=== PATIENT | female | born 1955 | race Caucasian/White ===

== ENCOUNTER 2017-08-04 07:07 | Day surgery (SDC) | payer OTHER ==
[~2017-08-04 07:07] MED LIST: ADULT LOW DOSE81 MG PO; BUSPAR 10MG TAB10 MG PO; ENBREL50 MG/1 ML SQ; WELLBUTRIN XL300 MG PO
--- NOTE | 2017-08-04 08:48 | Operative Note ---
Surgeon/Diagnoses Surgeon/[employer] Specialist(s) Date of procedure: 08/04/17 Surgeon: MD Jane Oleary Diagnoses Pre-op diagnosis: Dysphagia Heartburn Gastroesophageal reflux History of colon polyps Post-op diagnosis Same as preoperative diagnoses, with the addition of the following: Mild to moderate gastritis Very small sliding hiatal hernia Gastric cardia polyp Colon polyps Minimal hemorrhoidal cushions Procedure Procedure Procedure: Esophagogastroduodenoscopy with biopsy Colonoscopy with polypectomy Indications: SANTOSH SRIVASTAVA is a 61 year-old Female with a history of dysphagia, gastroesophageal reflux, heartburn, and a history of complex RIGHT sided colon polyp (serrated adenoma). Barium swallow revealed no significant abnormality. Findings: Gastroesophageal junction at 36 cm Tiny sliding hiatal hernia noted on maximum insufflation Gastric cardia polyp Mild to moderate gastritis Bowel preparation fairly poor for colonoscopy Fairly significant tortuosity and spasticity Sessile complex cecal polyp and adjacent polyp Procedure Description: After informed consent was obtained, the patient was taken to the endoscopy suite. IV sedation ensued after she was transferred to the LEFT lateral decubitus position. The gastroscope was advanced. No strictures or mass lesions were seen. These findings are consistent with recent barium swallow results. The gastroesophageal junction was at 36 cm. The stomach was entered. Mild to moderate gastritis was encountered. Retroflexion revealed a tiny sliding hernia that was noted only on maximum insufflation. The gastric cardia polyp was excised with cold biopsy forceps. Antral biopsies were obtained. The pylorus was intubated. The duodenal mucosa appeared relatively normal. The gastroscope was carefully removed. Digital rectal exam revealed very small hemorrhoidal cushions. No thrombosis or bleeding was noted. The colonoscope was placed in position. Thepatient's bowel preparation was fairly poor. Fairly significant tortuosity and spasticity were encountered. Large volume irrigation was used to somewhat improved visualization. A complex sessile cecal polyp and adjacent polyps were excised by way of snare and cold biopsy forceps. This site was tattooed for future reference. No additional lesions were seen; however, as stated above the preparation was fairly poor. The patient was transferred to recovery in stable condition. EBL (ml): 1 Anesthesia: IV sedation with 9 mg of Versed and 200 g of fentanyl Complications: No immediate Specimens: Gastric cardia polyp Antral biopsy Complex sessile cecal polyp and adjacent polyp Disposition Disposition: Stable to recovery from where she will be discharged home. Repeat colonoscopy is pending pathology but will once again likely be between 1-2 years secondary to history of complex large polyps and limited visualization. at [id number]
[2017-08-04 15:10] VITALS: BP 131/76
== END 2017-08-04 10:40 | disposition home or self-care (01) ==
LOC: SDC 07:07
PROVIDERS: Surgery
PROC: 0DBH8ZX Excision of Cecum, Via Natural or Artificial Opening Endoscopic, Diagnostic (ICD-10-PCS; 2017-08-04)
PROC: 3E0H8GC Introduction of Other Therapeutic Substance into Lower GI, Via Natural or Artificial Opening Endoscopic (ICD-10-PCS; 2017-08-04)
PROC: 0DB78ZX Excision of Stomach, Pylorus, Via Natural or Artificial Opening Endoscopic, Diagnostic (ICD-10-PCS; 2017-08-04)
PROC: 0DBH8ZX Excision of Cecum, Via Natural or Artificial Opening Endoscopic, Diagnostic (ICD-10-PCS; principal; 2017-08-04 07:30)
DX: Z12.11 Encounter for screening for malignant neoplasm of colon (principal); Z86.010 Personal history of colon polyps; K63.5 Polyp of colon; K29.70 Gastritis, unspecified, without bleeding; K44.9 Diaphragmatic hernia without obstruction or gangrene; K21.9 Gastro-esophageal reflux disease without esophagitis; K31.7 Polyp of stomach and duodenum

== ENCOUNTER → 2017-09-28 | Outpatient (CLI) | payer OTHER ==
--- NOTE | 2017-09-28 15:45 | RADIOLOGY REPORT PS360 ---
CT SOFT TISSUE NECK W/CONTRAST INDICATION: CERVICAL LYMPHADENITIS ORDERING PHYSICIAN: Jose Rust MD PATIENT AGE: 61 years COMPARISON: None TECHNIQUE: Axial images are obtained with 75 mL Isovue-370 . Sagittal and coronal reformatted images are reviewed as well. FINDINGS: There are scattered small lymph nodes in the neck bilaterally measuring up to 2.5 x 1.2 cm in the right jugulodigastric region and 1.7 x 0.8 cm and the left jugular digastric area. No evidence of abscess. There is an 8 mm hypodense nodule of the right lobe of the thyroid gland superiorly. The nasopharynx has an unremarkable appearance. No sinus air-fluid level. The lung apices are clear. No acute bony anomalies. The epiglottis has an unremarkable appearance IMPRESSION: 1. Scattered small bilateral cervical lymph nodes. No abscess or mass. 2. 8 mm nodule of the right lobe of the thyroid gland.
== END ==
LOC: RAD 08:48
DX: I88.9 Nonspecific lymphadenitis, unspecified (principal)
CPT/HCPCS: Q9967